=== PATIENT | male | born 1945 | race Caucasian/White ===

== ENCOUNTER 2019-08-22 13:55 | Emergency (ER) | payer MEDICARE ==
[~2019-08-22] VITALS: Ht 172.7 cm; Wt 102.1 kg
[2019-08-22] MEDS ORDERED: POTASSIUM CHLO10 ME1 PO (15:01)
[2019-08-22] MEDS ORDERED: OMEPRAZOLE40 MG PO (15:01)
[2019-08-22] MEDS ORDERED: COLESTIPOL HCL1 GM PO (15:01)
[2019-08-22] MEDS ORDERED: CITALOPRAM HBR20 MG PO (15:01)
[2019-08-22] MEDS ORDERED: GABAPENTIN300 MG PO (15:01)
[2019-08-22] MEDS ORDERED: CLOBETASOL PROP15 G1 TOP (15:01)
[2019-08-22] MEDS ORDERED: REVATIO20 MG PO (15:01)
[2019-08-22] MEDS ORDERED: LORATADINE10 MG PO (15:01)
[2019-08-22] MEDS ORDERED: DESONIDE15 G1 TOP (15:01)
[2019-08-22] MEDS ORDERED: WELLBUTRIN SR150 MG PO (15:01)
[2019-08-22] MEDS ORDERED: SUMATRIPTAN SUC25 MG PO (15:01)
[2019-08-22] MEDS ORDERED: TESTOSTERO200 MG/1 M IM (15:01)
[2019-08-22] MEDS ORDERED: LASIX20 MG PO (15:01)
[2019-08-22] MEDS ORDERED: TRAZODONE HCL50 MG PO (15:01)
[2019-08-22] MEDS ORDERED: CALAN SR120 MG PO (15:01)
[2019-08-22] MEDS ORDERED: NIZORAL120 ML TOP (15:01)
[2019-08-22] MEDS ORDERED: GEMFIBROZIL600 MG PO (15:01)
[2019-08-22] MEDS ORDERED: HYDROCORTISONE30 GM TOP (15:01)
[2019-08-22] MEDS ORDERED: TRETIN X TOP (15:01)
[2019-08-22] MEDS ORDERED: KETOROLAC TROMETHAMINE 30 MG/ML VIAL ONE (15:10)
[2019-08-22] MEDS ORDERED: KETOROLAC TROMETHAMINE 30 MG/ML VIAL IV ONE (15:30)
== END 2019-08-22 15:25 | disposition home or self-care (01) ==
LOC: FSED 13:55
DX: R30.0 Dysuria (principal); N40.0 Benign prostatic hyperplasia without lower urinary tract symptoms; I10 Essential (primary) hypertension; F17.290 Nicotine dependence, other tobacco product, uncomplicated
CPT/HCPCS: 80048; 81003; 82270; 85025; 87086; 99283; J1885

== ENCOUNTER 2020-05-21 21:41 | Observation (INO) | payer MEDICARE ==
[~2020-05-21] VITALS: Ht 172.7 cm; Wt 102.1 kg
[~2020-05-21 21:41] MED LIST: CALAN SR120 MG PO; CITALOPRAM HBR20 MG PO; CLOBETASOL PROP15 G1 TOP; COLESTIPOL HCL1 GM PO; DESONIDE15 G1 TOP; GABAPENTIN300 MG PO; GEMFIBROZIL600 MG PO; HYDROCORTISONE30 GM TOP; LASIX20 MG PO; LORATADINE10 MG PO; NIZORAL120 ML TOP; OMEPRAZOLE40 MG PO; POTASSIUM CHLO10 ME1 PO; REVATIO20 MG PO; SUMATRIPTAN SUC25 MG PO; TESTOSTERO200 MG/1 M IM; TRAZODONE HCL50 MG PO; TRETIN X TOP; WELLBUTRIN SR150 MG PO
[2020-05-21] MEDS ORDERED: ONDANSETRON HCL INJ 2MG/ML 2ML 2 MG/ML VIAL IV STA (21:59)
[2020-05-21] MEDS ORDERED: MORPHINE SULFATE INJ 4 MG/ML INJ 1ML IV STA (21:59)
[2020-05-21] MEDS ORDERED: ASPIRIN 81 MG CHEW TAB PO ONE ×2 (22:00)
[2020-05-21 22:37] LABS: BASOPHILS # (AUTO) 0.1 (0.0-0.1); BASOPHILS % 0.5 % (0.0-1.0); EOSINOPHILS # (AUTO) 0.1 (0.0-0.4); EOSINOPHILS % 1.2 % (0.0-6.0); HEMATOCRIT 49.5 % (38.2-49.6); HEMOGLOBIN 16.1 g/dL (14.0-18.0); LYMPHOCYTES # (AUTO) 2.4 (1.0-3.2); LYMPHOCYTES % 19.9 % (18.0-39.1); MEAN CORPUSCULAR HEMOGLOBIN 27.9 pg (28-32); MEAN CORPUSCULAR HGB CONC 32.5 g/dL (31-35); MEAN CORPUSCULAR VOLUME 85.6 fL (81-99); MONOCYTES % 8.5 % (4.4-11.3); NEUTROPHILS # (AUTO) 8.3 (2.1-6.9); NEUTROPHILS % 69.1 % (38.7-80.0); PLATELET COUNT 202 x10e3/uL (140-360); RED BLOOD COUNT 5.78 x10e6/uL (4.3-5.7); RED CELL DISTRIBUTION WIDTH 18.6 % (11.7-14.4)
[2020-05-21] MEDS ORDERED: IOPAMIDOL 370 MG/ML 200 ML INFUS..BTL INJ ONE (22:37)
[2020-05-21] MEDS ORDERED: SODIUM CHLORIDE 0.9% 50ML 50 ML ONE (22:37)
[2020-05-21] MEDS ORDERED: ASPIRIN 81 MG CHEW TAB ONE (22:41)
[2020-05-21] MEDS ORDERED: ONDANSETRON HCL INJ 2MG/ML 2ML 2 MG/ML VIAL ONE (22:41)
[2020-05-21] MEDS ORDERED: MORPHINE SULFATE INJ 4 MG/ML INJ 1ML ONE (22:41)
[2020-05-21 22:55] LABS: ALANINE AMINOTRANSFERASE 34 IU/L (0-55); ALBUMIN 3.5 g/dL (3.5-5.0); ALBUMIN/GLOBULIN RATIO 0.9 (0.8-2.0); ALKALINE PHOSPHATASE 75 IU/L (40-150); ANION GAP 17.6 mmol/L (8-16); BLOOD UREA NITROGEN 8 mg/dL (7-26); BUN/CREATININE RATIO 10 (6-25); CARBON DIOXIDE 21 mmol/L (22-29); CHLORIDE 103 mmol/L (98-107); CREATINE KINASE 294 IU/L (30-200); CREATININE, SERUM 0.79 mg/dL (0.72-1.25); EST GLOMERULAR FILTRATION RATE > 60 ML/MIN (60-); GLUCOSE 99 mg/dL (74-118); POTASSIUM 3.6 mmol/L (3.5-5.1); SODIUM 138 mmol/L (136-145)
[2020-05-22] VITALS (9 sets, daily range): BP systolic 154–175; BP diastolic 75–97
[2020-05-22] MEDS ORDERED: ASPIRIN 81 MG CHEW TAB PO ONE (00:45)
[2020-05-22] MEDS: ONDANSETRON HCL INJ 2MG/ML 2ML 2 MG/ML VIAL IV PRN ×2 (02:40→07:26)
[2020-05-22] MEDS: MORPHINE SULFATE INJ 4 MG/ML INJ 1ML IV PRN ×5 (02:40→22:23)
[2020-05-22] MEDS ORDERED: ALBUTEROL IH (02:59)
[2020-05-22] MEDS ORDERED: BACITRACIN15 GM TOP (03:43)
[2020-05-22] MEDS ORDERED: VITAMIN B-121000 MC2 PO (03:43)
[2020-05-22] MEDS ORDERED: MECLIZINE HCL12.5 MG PO (03:43)
[2020-05-22] MEDS ORDERED: DOCUSATE SODIU100 MG PO (03:43)
[2020-05-22] MEDS ORDERED: ULTRAM50 MG PO (03:43)
[2020-05-22] MEDS ORDERED: LEXAPRO10 MG PO (03:43)
[2020-05-22] MEDS ORDERED: FLOMAX0.4 MG PO (03:43)
[2020-05-22] MEDS ORDERED: DICLOFENAC TOP (03:43)
[2020-05-22] MEDS ORDERED: REFRESH PLUS1 EACH OP (03:43)
[2020-05-22 08:41] LABS: CREATINE KINASE MB 12.3 ng/mL (0-5.0)
[2020-05-22] MEDS: COLCHICINE 0.6 MG TAB PO SCH ×2 (11:51→17:49)
[2020-05-22] MEDS: METOPROLOL SUCCINATE 25 MG TAB XL PO SCH (11:51)
[2020-05-22] MEDS ORDERED: HYDRALAZINE HCL 20 MG/ML VIAL IV PRN (13:00)
[2020-05-22] MEDS ORDERED: TEMAZEPAM 15 MG CAP PO PRN (13:00)
[2020-05-22] MEDS ORDERED: ACETAMINOPHEN 325 MG TAB PO PRN (13:00)
[2020-05-22] MEDS ORDERED: POLYETHYLENE GLYCOL 3350 17 GM PACK PO PRN (13:00)
[2020-05-22 13:08] LABS: CREATINE KINASE MB 11.9 ng/mL (0-5.0)
[2020-05-22] MEDS ORDERED: TRAMADOL HCL 50 MG TAB PO PRN (13:30)
[2020-05-22] MEDS ORDERED: TESTOSTERONE CYPIONATE IM SCH (13:30)
[2020-05-22] MEDS ORDERED: MECLIZINE HCL 12.5 MG TAB PO PRN (13:30)
[2020-05-22] MEDS ORDERED: ALBUTEROL 90 MCG IH PRN (13:30)
[2020-05-22] MEDS ORDERED: SILDENAFIL CITRATE 20 MG TAB PO SCH (13:30)
[2020-05-22] MEDS ORDERED: LORATADINE 10 MG TAB PO PRN (13:30)
[2020-05-22] MEDS ORDERED: SUMATRIPTAN SUCCINATE 25 MG TAB PO PRN (13:30)
[2020-05-22] MEDS ORDERED: ALBUTEROL SULFATE HFA 8GM INHALATION AEROSOL INH PRN (14:45)
[2020-05-22] MEDS ORDERED: SILDENAFIL CITRATE 20 MG TAB PO PRN (15:00)
[2020-05-22] MEDS: DICLOFENAC SOD 1% GEL 100 GM TUBE TP SCH (17:00)
[2020-05-22] MEDS: DESONIDE 0.05% TOP SCH (17:00)
[2020-05-22] MEDS: ARTIFICIAL TEARS (OPTH) 15 ML BTL OP SCH (17:00)
[2020-05-22] MEDS: BACITRACIN ZINC 15 GM OINT TOP SCH (17:00)
[2020-05-22] MEDS ORDERED: DICLOFENAC TOP SCH (17:00)
[2020-05-22] MEDS: HYDROCORTISONE .5% 30 GM TUBE TOP SCH (17:00)
[2020-05-22] MEDS ORDERED: NON-FORMULARY MEDICATION (Carboxymethylcellulose Sodium (Refresh Plus) 1 DROP) OP SCH (17:00)
[2020-05-22] MEDS ORDERED: CLOBETASOL PROPIONATE 0.05% CRM 15 GM TUBE TOP SCH (17:00)
[2020-05-22] MEDS: GABAPENTIN 300 MG CAP PO SCH ×2 (17:49→20:52)
[2020-05-22] MEDS: GEMFIBROZIL 600 MG TAB PO SCH (17:50)
[2020-05-22] MEDS: FUROSEMIDE 20 MG TAB PO SCH (17:50)
[2020-05-22] MEDS: DOCUSATE SODIUM 100 MG CAP PO SCH (17:50)
[2020-05-22] MEDS: FAMOTIDINE 20 MG TAB PO SCH (17:50)
[2020-05-22] MEDS ORDERED: BUPROPION HCL100 MG PO (19:49)
[2020-05-22] MEDS ORDERED: TAMSULOSIN HCL 0.4 MG CAP PO SCH (21:00)
[2020-05-22] MEDS ORDERED: TRETINOIN TOP SCH (21:00)
[2020-05-22] MEDS ORDERED: TRAZODONE HCL 50 MG TAB PO SCH (21:00)
[2020-05-22] MEDS ORDERED: [UNRECOGNIZED DRUG - OTHER] TOP SCH (21:00)
[2020-05-23 00:46] VITALS: BP 134/71
[2020-05-23 05:22] VITALS: BP 122/84
[2020-05-23 06:22] LABS: BASOPHILS % 0.5 % (0.0-1.0); EOSINOPHILS # (AUTO) 0.1 (0.0-0.4); EOSINOPHILS % 1.4 % (0.0-6.0); HEMATOCRIT 45.3 % (38.2-49.6); HEMOGLOBIN 14.7 g/dL (14.0-18.0); LYMPHOCYTES # (AUTO) 1.3 (1.0-3.2); LYMPHOCYTES % 20.4 % (18.0-39.1); MEAN CORPUSCULAR HEMOGLOBIN 28.5 pg (28-32); MEAN CORPUSCULAR HGB CONC 32.5 g/dL (31-35); MONOCYTES # (AUTO) 0.5 (0.2-0.8); MONOCYTES % 8.1 % (4.4-11.3); NEUTROPHILS # (AUTO) 4.4 (2.1-6.9); NEUTROPHILS % 68.7 % (38.7-80.0); PLATELET COUNT 133 x10e3/uL (140-360); RED BLOOD COUNT 5.15 x10e6/uL (4.3-5.7); RED CELL DISTRIBUTION WIDTH 17.6 % (11.7-14.4)
[2020-05-23 07:04] LABS: ALANINE AMINOTRANSFERASE 28 IU/L (0-55); ALBUMIN 2.7 g/dL (3.5-5.0); ALBUMIN/GLOBULIN RATIO 0.8 (0.8-2.0); ALKALINE PHOSPHATASE 55 IU/L (40-150); ANION GAP 13.3 mmol/L (8-16); BLOOD UREA NITROGEN 9 mg/dL (7-26); BUN/CREATININE RATIO 13 (6-25); CALCIUM 8.3 mg/dL (8.4-10.2); CARBON DIOXIDE 25 mmol/L (22-29); CHLORIDE 103 mmol/L (98-107); CREATININE, SERUM 0.68 mg/dL (0.72-1.25); EST GLOMERULAR FILTRATION RATE > 60 ML/MIN (60-); GLUCOSE 91 mg/dL (74-118); POTASSIUM 3.3 mmol/L (3.5-5.1); SODIUM 138 mmol/L (136-145)
[2020-05-23 07:18] LABS: CHOL/HDL RATIO 3.4 (3.9-4.7); MAGNESIUM 2.2 MG/DL (1.3-2.1); PHOSPHORUS 2.6 MG/DL (2.3-4.7)
[2020-05-23 07:25] VITALS: BP 122/84
[2020-05-23 07:40] LABS: THYROID STIMULATING HORMONE 0.929 uIU/mL (0.350-4.940)
[2020-05-23] MEDS ORDERED: CITALOPRAM HYDROBROMIDE 20 MG TAB PO SCH (09:00)
[2020-05-23] MEDS: HYDROCORTISONE .5% 30 GM TUBE TOP SCH (09:00)
[2020-05-23] MEDS ORDERED: POTASSIUM CHLORIDE 10MEQ EA PO SCH (09:00)
[2020-05-23] MEDS ORDERED: COLESTIPOL HCL 1 G TAB PO SCH (09:00)
[2020-05-23] MEDS: DESONIDE 0.05% TOP SCH (09:00)
[2020-05-23] MEDS ORDERED: KETOCONAZOLE 2% SHAMPOO 4OZ BTL TOP SCH (09:00)
[2020-05-23] MEDS ORDERED: VERAPAMIL HCL 80 MG TAB PO SCH (09:00)
[2020-05-23] MEDS ORDERED: CLOBETASOL PROPIONATE TOP SCH (09:00)
[2020-05-23] MEDS ORDERED: VERAPAMIL HCL 120 MG TABSR PO SCH (09:00)
[2020-05-23] MEDS: ARTIFICIAL TEARS (OPTH) 15 ML BTL OP SCH (09:00)
[2020-05-23] MEDS: DICLOFENAC SOD 1% GEL 100 GM TUBE TP SCH (09:00)
[2020-05-23] MEDS ORDERED: ESCITALOPRAM OXALATE 10 MG TAB PO SCH (09:00)
[2020-05-23] MEDS ORDERED: CYANOCOBALAMIN 1,000 MCG TAB PO SCH (09:00)
[2020-05-23] MEDS ORDERED: BUPROPION HCL SR 150 MG TAB PO SCH (09:00)
[2020-05-23] MEDS: BACITRACIN ZINC 15 GM OINT TOP SCH (09:00)
[2020-05-23] MEDS ORDERED: DOCUSATE SODIUM 100 MG CAP PO SCH (09:00)
[2020-05-23 09:25] VITALS: BP 130/72
[2020-05-23] MEDS: FAMOTIDINE 20 MG TAB PO SCH (10:01)
[2020-05-23] MEDS: DOCUSATE SODIUM 100 MG CAP PO SCH (10:01)
[2020-05-23] MEDS: COLCHICINE 0.6 MG TAB PO SCH (10:02)
[2020-05-23] MEDS: FUROSEMIDE 20 MG TAB PO SCH (10:02)
[2020-05-23] MEDS: GEMFIBROZIL 600 MG TAB PO SCH (10:02)
[2020-05-23] MEDS: METOPROLOL SUCCINATE 25 MG TAB XL PO SCH (10:03)
[2020-05-23] MEDS: GABAPENTIN 300 MG CAP PO SCH (10:03)
[2020-05-23] MEDS ORDERED: POTASSIUM CHLORIDE 10MEQ EA PO ONE (12:15)
[2020-05-23] MEDS ORDERED: Colchicine PO (12:33)
[2020-05-23 12:47] VITALS: BP 116/52
[2020-05-23] MEDS ORDERED: ONDANSETRON HCL 4 MG ORAL DISINTEGRATING TAB PO PRN (13:15)
[2020-06-05] MEDS ORDERED: TESTOSTERONE CYPIONATE IM SCH (09:00)
== END 2020-05-23 13:29 | disposition home or self-care (01) ==
LOC: FSED 22:08 → ERHOLD 05-22 00:40 → MED/SURG3 05-22 01:57
PROVIDERS: ADMIT Internal Medicine; ATTEND Internal Medicine
DX: R09.1 Pleurisy (principal); R09.02 Hypoxemia; I11.0 Hypertensive heart disease with heart failure; I50.9 Heart failure, unspecified; K21.9 Gastro-esophageal reflux disease without esophagitis; Z80.9 Family history of malignant neoplasm, unspecified; I25.10 Atherosclerotic heart disease of native coronary artery without angina pectoris; J45.909 Unspecified asthma, uncomplicated; K80.20 Calculus of gallbladder without cholecystitis without obstruction; R07.81 Pleurodynia; Z87.891 Personal history of nicotine dependence; E66.01 Morbid (severe) obesity due to excess calories; G89.29 Other chronic pain; Z20.828 Contact with and (suspected) exposure to other viral communicable diseases; Z88.8 Allergy status to other drugs, medicaments and biological substances; E78.2 Mixed hyperlipidemia; Z68.34 Body mass index [BMI] 34.0-34.9, adult
CPT/HCPCS: 36415 ×3; 71260; 80048; 80053 ×2; 80061; 82550 ×2; 82553 ×2; 83036; 83735; 83880; 84100; 84443; 84484 ×2; 85025 ×2; 85379; 93005; 93306; 94660; 97161; 99284; G0378 ×2; J2270 ×2; J2405 ×2; Q9967; U0002 ×2

== ENCOUNTER 2020-08-25 12:31 | Inpatient (IN) | payer MEDICARE ==
[~2020-08-25] VITALS: Ht 172.7 cm; Wt 99.3 kg
[~2020-08-25 12:31] MED LIST changes: +ALBUTEROL IH; +BACITRACIN15 GM TOP; +BUPROPION HCL100 MG PO; +Colchicine PO; +DICLOFENAC TOP; +DOCUSATE SODIU100 MG PO; +FLOMAX0.4 MG PO; +LEXAPRO10 MG PO; +MECLIZINE HCL12.5 MG PO; +REFRESH PLUS1 EACH OP; +ULTRAM50 MG PO; +VITAMIN B-121000 MC2 PO
[2020-08-25] MEDS ORDERED: DIAZEPAM INJ 5 MG/ML 2 ML ONE (13:58)
[2020-08-25] MEDS ORDERED: DIAZEPAM INJ 5 MG/ML 2 ML IV ONE ×2 (14:00→15:15)
[2020-08-25] MEDS ORDERED: SODIUM CHLORIDE 0.9% 1000ML 1,000 ML IV SCH ×2 (14:00→20:30)
[2020-08-25] MEDS ORDERED: ONDANSETRON HCL INJ 2MG/ML 2ML 2 MG/ML VIAL IV NR (14:15)
[2020-08-25] MEDS ORDERED: MORPHINE SULFATE 5 MG/ML VIAL IV NR (14:15)
[2020-08-25] MEDS ORDERED: ULTRAM50 MG PO (14:26)
[2020-08-25 15:02] LABS: BASOPHILS # (AUTO) 0.1 (0.0-0.1); BASOPHILS % 0.8 % (0.0-1.0); EOSINOPHILS # (AUTO) 0.3 (0.0-0.4); EOSINOPHILS % 3.5 % (0.0-6.0); HEMATOCRIT 53.9 % (38.2-49.6); HEMOGLOBIN 18.2 g/dL (14.0-18.0); LYMPHOCYTES # (AUTO) 2.3 (1.0-3.2); LYMPHOCYTES % 23.8 % (18.0-39.1); MEAN CORPUSCULAR HEMOGLOBIN 29.6 pg (28-32); MEAN CORPUSCULAR HGB CONC 33.8 g/dL (31-35); MEAN CORPUSCULAR VOLUME 87.8 fL (81-99); MONOCYTES # (AUTO) 0.8 (0.2-0.8); MONOCYTES % 8.6 % (4.4-11.3); PLATELET COUNT 241 x10e3/uL (140-360); RED BLOOD COUNT 6.14 x10e6/uL (4.3-5.7); RED CELL DISTRIBUTION WIDTH 15.4 % (11.7-14.4)
[2020-08-25] MEDS ORDERED: MORPHINE SULFATE INJ 4 MG/ML INJ 1ML IV STA (17:28)
[2020-08-25] MEDS ORDERED: MORPHINE SULFATE INJ 4 MG/ML INJ 1ML ONE (17:48)
[2020-08-25] MEDS ORDERED: AMANTADINE HCL 100 MG CAP PO ONE (18:10)
[2020-08-25] MEDS ORDERED: SODIUM CHLORIDE FLUSH 10 ML SYR INJ PRN (20:00)
[2020-08-25] MEDS ORDERED: ZIPRASIDONE 20 MG VIAL IM ONE ×2 (20:16→20:30)
[2020-08-25] MEDS ORDERED: SODIUM CHLORIDE 0.9% 1000ML 1,000 ML ONE (20:49)
[2020-08-25] MEDS ORDERED: DIPHENHYDRAMINE HCL INJ 50 MG/ML VIAL IV ONE (21:15)
[2020-08-25] MEDS ORDERED: HYDRALAZINE HCL 20 MG/ML VIAL IV PRN (22:15)
[2020-08-25] MEDS ORDERED: NIFEDIPINE CR 30 MG TAB PO ONE (22:15)
[2020-08-25] MEDS: MORPHINE SULFATE INJ 4 MG/ML INJ 1ML IV PRN (22:17)
[2020-08-25] MEDS: ONDANSETRON HCL INJ 2MG/ML 2ML 2 MG/ML VIAL IV PRN (22:17)
[2020-08-25 22:40] VITALS: BP 180/130
[2020-08-25 23:36] VITALS: BP 180/130
[2020-08-26] VITALS (8 sets, daily range): BP systolic 122–172; BP diastolic 67–92
[2020-08-26] MEDS ORDERED: DIPHENHYDRAMINE HCL 25 MG CAP PO PRN (01:00)
[2020-08-26] MEDS ORDERED: LIDOCAINE 4% PATCH TP PRN (01:00)
[2020-08-26] MEDS ORDERED: MELATONIN 5 MG TABLET PO PRN (01:00)
[2020-08-26] MEDS ORDERED: ACETAMINOPHEN 325 MG TAB PO PRN (01:00)
[2020-08-26] MEDS ORDERED: HYDRALAZINE HCL 20 MG/ML VIAL IV PRN (01:00)
[2020-08-26] MEDS ORDERED: ALBUTEROL/IPRATROPIUM 3 ML NEB NEB PRN (01:00)
[2020-08-26] MEDS ORDERED: DOCUSATE SODIUM 100 MG CAP PO PRN (01:00)
[2020-08-26] MEDS ORDERED: DEXTROSE 50% SYRINGE 50 ML IV PRN (01:00)
[2020-08-26] MEDS ORDERED: POLYETHYLENE GLYCOL 3350 17 GM PACK PO PRN (01:00)
[2020-08-26] MEDS ORDERED: LORATADINE 10 MG TAB PO PRN (01:15)
[2020-08-26] MEDS ORDERED: TRAMADOL HCL 50 MG TAB PO PRN (01:15)
[2020-08-26] MEDS ORDERED: SUMATRIPTAN SUCCINATE 25 MG TAB PO PRN (01:15)
[2020-08-26] MEDS ORDERED: MECLIZINE HCL 12.5 MG TAB PO PRN (01:15)
[2020-08-26] MEDS: ONDANSETRON HCL INJ 2MG/ML 2ML 2 MG/ML VIAL IV PRN ×6 (02:15→23:30)
[2020-08-26] MEDS: MORPHINE SULFATE INJ 4 MG/ML INJ 1ML IV PRN ×6 (02:15→23:30)
[2020-08-26 04:49] LABS: BASOPHILS # (AUTO) 0.1 (0.0-0.1); BASOPHILS % 0.6 % (0.0-1.0); EOSINOPHILS # (AUTO) 0.4 (0.0-0.4); EOSINOPHILS % 4.1 % (0.0-6.0); HEMATOCRIT 52.8 % (38.2-49.6); HEMOGLOBIN 17.5 g/dL (14.0-18.0); LYMPHOCYTES % 20.9 % (18.0-39.1); MEAN CORPUSCULAR HEMOGLOBIN 29.4 pg (28-32); MEAN CORPUSCULAR HGB CONC 33.1 g/dL (31-35); MEAN CORPUSCULAR VOLUME 88.7 fL (81-99); MONOCYTES # (AUTO) 0.9 (0.2-0.8); MONOCYTES % 9.1 % (4.4-11.3); NEUTROPHILS % 64.8 % (38.7-80.0); PLATELET COUNT 220 x10e3/uL (140-360); RED BLOOD COUNT 5.95 x10e6/uL (4.3-5.7); RED CELL DISTRIBUTION WIDTH 15.1 % (11.7-14.4)
[2020-08-26 05:10] LABS: ALANINE AMINOTRANSFERASE 49 IU/L (0-55); ALBUMIN 3.9 g/dL (3.5-5.0); ALBUMIN/GLOBULIN RATIO 1.3 (0.8-2.0); ALKALINE PHOSPHATASE 70 IU/L (40-150); ANION GAP 14.9 mmol/L (8-16); BLOOD UREA NITROGEN 9 mg/dL (7-26); BUN/CREATININE RATIO 11 (6-25); CALCIUM 8.8 mg/dL (8.4-10.2); CARBON DIOXIDE 23 mmol/L (22-29); CHLORIDE 106 mmol/L (98-107); CREATININE, SERUM 0.85 mg/dL (0.72-1.25); EST GLOMERULAR FILTRATION RATE > 60 ML/MIN (60-); GLUCOSE 109 mg/dL (74-118); MAGNESIUM 2.2 MG/DL (1.3-2.1); POTASSIUM 3.9 mmol/L (3.5-5.1); SODIUM 140 mmol/L (136-145)
[2020-08-26] MEDS ORDERED: TRAMADOL HCL 50 MG TAB PO SCH (06:00)
[2020-08-26] MEDS: NIFEDIPINE CR 30 MG TAB PO SCH (08:05)
[2020-08-26] MEDS: GABAPENTIN 300 MG CAP PO SCH ×3 (08:05→21:21)
[2020-08-26] MEDS ORDERED: BUPROPION HCL 100 MG TAB PO SCH (09:00)
[2020-08-26] MEDS: PANTOPRAZOLE SOD 40 MG TABEC PO SCH ×2 (10:53→16:32)
[2020-08-26] MEDS: VERAPAMIL HCL 80 MG TAB PO SCH ×2 (12:00→12:59)
[2020-08-26] MEDS: BUPROPION HCL SR 150 MG TAB PO SCH (12:55)
[2020-08-26] MEDS: COLESTIPOL HCL 1 G TAB PO SCH (16:32)
[2020-08-26] MEDS: SODIUM CHLORIDE 0.9% 1000ML 1,000 ML IV SCH (19:35)
[2020-08-26] MEDS: TAMSULOSIN HCL 0.4 MG CAP PO SCH (21:21)
[2020-08-27] VITALS (8 sets, daily range): BP systolic 118–140; BP diastolic 69–86
[2020-08-27] MEDS: SODIUM CHLORIDE 0.9% 1000ML 1,000 ML IV SCH ×4 (01:22→23:30)
[2020-08-27] MEDS: MORPHINE SULFATE INJ 4 MG/ML INJ 1ML IV PRN ×4 (03:36→20:20)
[2020-08-27] MEDS: ONDANSETRON HCL INJ 2MG/ML 2ML 2 MG/ML VIAL IV PRN ×2 (03:36→20:20)
[2020-08-27 05:08] LABS: BASOPHILS % 0.4 % (0.0-1.0); EOSINOPHILS # (AUTO) 0.3 (0.0-0.4); EOSINOPHILS % 4.7 % (0.0-6.0); HEMATOCRIT 48.8 % (38.2-49.6); LYMPHOCYTES # (AUTO) 1.8 (1.0-3.2); LYMPHOCYTES % 25.2 % (18.0-39.1); MEAN CORPUSCULAR HEMOGLOBIN 29.2 pg (28-32); MEAN CORPUSCULAR HGB CONC 32.8 g/dL (31-35); MEAN CORPUSCULAR VOLUME 89.1 fL (81-99); MONOCYTES # (AUTO) 0.5 (0.2-0.8); MONOCYTES % 6.9 % (4.4-11.3); NEUTROPHILS # (AUTO) 4.5 (2.1-6.9); NEUTROPHILS % 62.5 % (38.7-80.0); PLATELET COUNT 186 x10e3/uL (140-360); RED BLOOD COUNT 5.48 x10e6/uL (4.3-5.7); RED CELL DISTRIBUTION WIDTH 14.9 % (11.7-14.4)
[2020-08-27 05:40] LABS: ANION GAP 13.5 mmol/L (8-16); BLOOD UREA NITROGEN 9 mg/dL (7-26); BUN/CREATININE RATIO 11 (6-25); CALCIUM 7.9 mg/dL (8.4-10.2); CARBON DIOXIDE 23 mmol/L (22-29); CHLORIDE 108 mmol/L (98-107); EST GLOMERULAR FILTRATION RATE > 60 ML/MIN (60-); GLUCOSE 113 mg/dL (74-118); POTASSIUM 3.5 mmol/L (3.5-5.1); SODIUM 141 mmol/L (136-145)
[2020-08-27] MEDS: PANTOPRAZOLE SOD 40 MG TABEC PO SCH ×2 (08:48→15:53)
[2020-08-27] MEDS: BUPROPION HCL SR 150 MG TAB PO SCH (08:49)
[2020-08-27] MEDS: ESCITALOPRAM OXALATE 10 MG TAB PO SCH (08:49)
[2020-08-27] MEDS: GABAPENTIN 300 MG CAP PO SCH ×3 (08:49→20:20)
[2020-08-27] MEDS: ASPIRIN 81 MG CHEW TAB PO SCH (08:49)
[2020-08-27] MEDS: NIFEDIPINE CR 30 MG TAB PO SCH (08:53)
[2020-08-27] MEDS: VERAPAMIL HCL 80 MG TAB PO SCH (09:00)
[2020-08-27] MEDS: COLESTIPOL HCL 1 G TAB PO SCH ×2 (09:50→16:05)
[2020-08-27] MEDS: SODIUM CHLORIDE 0.9% 500ML 500 ML IV ONE ×2 (12:25→13:59)
[2020-08-27] MEDS: TAMSULOSIN HCL 0.4 MG CAP PO SCH (20:20)
[2020-08-28] VITALS: BP 148/87
[2020-08-28] MEDS: ONDANSETRON HCL INJ 2MG/ML 2ML 2 MG/ML VIAL IV PRN ×2 (00:33→04:33)
[2020-08-28] MEDS: MORPHINE SULFATE INJ 4 MG/ML INJ 1ML IV PRN ×3 (00:33→09:55)
[2020-08-28] MEDS: SODIUM CHLORIDE 0.9% 1000ML 1,000 ML IV SCH ×2 (04:05→06:04)
[2020-08-28 07:48] VITALS: BP 136/85
[2020-08-28] MEDS: COLESTIPOL HCL 1 G TAB PO SCH (08:22)
[2020-08-28] MEDS: ASPIRIN 81 MG CHEW TAB PO SCH (08:22)
[2020-08-28] MEDS: ESCITALOPRAM OXALATE 10 MG TAB PO SCH (08:22)
[2020-08-28] MEDS: GABAPENTIN 300 MG CAP PO SCH (08:22)
[2020-08-28] MEDS: BUPROPION HCL SR 150 MG TAB PO SCH (08:23)
[2020-08-28] MEDS: VERAPAMIL HCL 80 MG TAB PO SCH (08:23)
[2020-08-28] MEDS: NIFEDIPINE CR 30 MG TAB PO SCH (08:25)
[2020-08-28 08:26] VITALS: BP 136/85
[2020-08-28] MEDS: PANTOPRAZOLE SOD 40 MG TABEC PO SCH (08:30)
[2020-08-28] MEDS ORDERED: POTASSIUM CHLORIDE 20 MEQ TAB CR PO ONE (10:30)
== END 2020-08-28 11:29 | disposition home or self-care (01) | DRG 92 ==
LOC: FSED 12:50 → ERHOLD 19:48 → MED/SURG2 21:40
PROVIDERS: ADMIT Internal Medicine; ATTEND Internal Medicine
DX: G25.3 Myoclonus (principal); M62.82 Rhabdomyolysis; M54.2 Cervicalgia; Z79.891 Long term (current) use of opiate analgesic; F32.9 Major depressive disorder, single episode, unspecified; F41.9 Anxiety disorder, unspecified; Z20.822 Contact with and (suspected) exposure to COVID-19; I10 Essential (primary) hypertension; E78.5 Hyperlipidemia, unspecified; G43.909 Migraine, unspecified, not intractable, without status migrainosus; H81.09 Meniere's disease, unspecified ear; K21.9 Gastro-esophageal reflux disease without esophagitis; F10.10 Alcohol abuse, uncomplicated; F17.200 Nicotine dependence, unspecified, uncomplicated; M48.07 Spinal stenosis, lumbosacral region
CPT/HCPCS: 36415; 72128; 72131; 80048; 80053; 81003; 82550; 82553; 83605; 83735; 84132; 84484; 85025; 96361; 96374; 96376; J2270; J2405; J3360; J3486; J7030; J7040

== ENCOUNTER 2021-11-06 15:56 | Emergency (ER) | payer MEDICARE ==
[~2021-11-06] VITALS: Ht 172.7 cm; Wt 83.9 kg
[2021-11-06] MEDS ORDERED: CEFUROXIME250 MG PO (16:31)
[2021-11-06] MEDS ORDERED: ATORVASTATIN CA20 MG PO (16:31)
[2021-11-06] MEDS ORDERED: ASPIRIN EC81 MG PO (16:31)
[2021-11-06] MEDS ORDERED: CEFTRIAXONE 1 GM VIAL ONE (18:15)
== END 2021-11-06 18:59 | disposition home or self-care (01) ==
LOC: FSED 16:06
DX: N39.0 Urinary tract infection, site not specified (principal); I13.0 Hypertensive heart and chronic kidney disease with heart failure and stage 1 through stage 4 chronic kidney disease, or unspecified chronic kidney disease; N18.9 Chronic kidney disease, unspecified; I50.9 Heart failure, unspecified; N40.0 Benign prostatic hyperplasia without lower urinary tract symptoms; G37.3 Acute transverse myelitis in demyelinating disease of central nervous system; E78.5 Hyperlipidemia, unspecified; K21.9 Gastro-esophageal reflux disease without esophagitis; F41.9 Anxiety disorder, unspecified; F32.A Depression, unspecified; Z88.6 Allergy status to analgesic agent; Z79.82 Long term (current) use of aspirin; Z79.899 Other long term (current) drug therapy; Z85.47 Personal history of malignant neoplasm of testis
CPT/HCPCS: 51700; 74176; 80053; 81003; 85025; 87086; 87186; 99284; J0696